=== PATIENT | male | born 1970 | race African-American/Black ===

== ENCOUNTER 2018-06-20 17:55 | Emergency (ER) | payer OTHER ==
[~2018-06-20] VITALS: Ht 172.7 cm; Wt 92.3 kg
[~2018-06-20 17:55] MED LIST: NAPROSYN375 MG PO; SERTRALINE HCL25 MG PO; VALIUM5 MG PO; VYTORIN 10/41 TABLET PO
[2018-06-20 18:01] VITALS: BP 125/80
[2018-06-20] MEDS ORDERED: PERCOCET 5/31 TABLET PO (19:32)
[2018-06-20] MEDS ORDERED: MOTRIN800 MG PO (19:32)
== END 2018-06-20 20:25 | disposition home or self-care (01) ==
LOC: EME 17:55
PROC: 2W3QX1Z Immobilization of Right Lower Leg using Splint (ICD-10-PCS; principal; 2018-06-20)
DX: M79.661 Pain in right lower leg (principal); S86.001A Unspecified injury of right Achilles tendon, initial encounter; X58.XXXA Exposure to other specified factors, initial encounter; E78.5 Hyperlipidemia, unspecified
CPT/HCPCS: 73590; 99281; 99285